=== PATIENT | male | born 1990 | race Two or more races ===

== ENCOUNTER 2022-04-01 07:16 | Emergency (ER) | payer SELFPAY ==
[~2022-04-01] VITALS: Ht 170.2 cm; Wt 74.0 kg
[2022-04-01 07:44] VITALS: BP 131/68
[2022-04-01] MEDS ORDERED: IBUP800T27 PO (07:46)
[2022-04-01] MEDS ORDERED: AMOX-277 PO (07:46)
== END 2022-04-01 07:59 | disposition home or self-care (01) ==
LOC: ER 07:16
DX: K04.7 Periapical abscess without sinus (principal); R22.0 Localized swelling, mass and lump, head; F12.10 Cannabis abuse, uncomplicated